=== PATIENT | male | born 1955 | race Asian ===

== ENCOUNTER 2018-12-29 19:25 | Emergency (ER) | payer MEDICAID ==
[~2018-12-29] VITALS: Ht 167.6 cm; Wt 59.0 kg
[2018-12-29 19:44] VITALS: BP_SYST 141
[2018-12-29 20:32] LABS: BASOPHILS % (AUTO) 0.6 % (0.0-2.0); EOSINOPHILS % (AUTO) 0.5 % (0.0-4.0); HEMATOCRIT 43.6 % (36-54); HEMOGLOBIN 14.3 g/dL (14.0-18.0); LYMPHOCYTES # (AUTO) 1.1 K/uL (1.0-5.5); LYMPHOCYTES % (AUTO) 13.9 % (20.5-51.5); MEAN CORPUSCULAR HEMOGLOBIN 27 pg (27-31); MEAN CORPUSCULAR HGB CONC 33 % (32-36); MEAN CORPUSCULAR VOLUME 83 fL (79.0-98.0); MONOCYTES # (AUTO) 0.6 K/uL (0.0-1.0); MONOCYTES % (AUTO) 7.6 % (1.7-9.3); NEUTROPHILS # (AUTO) 6.3 K/uL (1.8-7.7); NEUTROPHILS % (AUTO) 77.4 % (40.0-70.0); PLATELET COUNT (AUTO) 220 K/uL (130-430); RED BLOOD CELL COUNT(AUTO) 5.24 MIL/uL (4.2-6.2); RED CELL DISTRIBUTION WIDTH 14.6 % (9.0-15.0); WHITE BLOOD COUNT (AUTO) 8.1 K/uL (4.8-10.8)
[2018-12-29 20:46] LABS: BILIRUBIN,URINE NEGATIVE (NEGATIVE); BLOOD, URINE NEGATIVE (NEGATIVE); CLARITY/URINE CLEAR (CLEAR); COLOR,URINE YELLOW (YELLOW); GLUCOSE,URINE NEGATIVE (NEGATIVE); KETONES,URINE NEGATIVE (NEGATIVE); LEUKOCYTE ESTERASE ,URINE NEGATIVE (NEGATIVE); NITRITE, URINE NEGATIVE (NEGATIVE); PROTEIN URINE NEGATIVE (NEGATIVE); UROBILINOGEN,URINE 0.2 (0.2-1.0)
[2018-12-29 20:47] LABS: CALCIUM 9.1 mg/dL (8.4-11.0); CREATININE 1.05 mg/dL (0.55-1.30); POTASSIUM 3.9 mmol/L (3.5-5.1)
[2018-12-29 20:53] LABS: ALBUMIN 3.8 g/dL (3.4-4.8); TOTAL BILIRUBIN 0.7 mg/dL (0.0-1.0)
[2018-12-29 21:39] VITALS: BP_SYST 141
== END 2018-12-29 20:00 | disposition home or self-care (01) ==
LOC: SED 19:25
DX: R33.9 Retention of urine, unspecified (principal)
CPT/HCPCS: 36415; 80053; 81003; 85025; 99284

== ENCOUNTER 2019-05-05 12:57 | Emergency (ER) | payer MEDICAID ==
[~2019-05-05] VITALS: Ht 175.3 cm; Wt 61.2 kg
[2019-05-05 13:10] VITALS: BP_SYST 126
--- NOTE | 2019-05-05 13:10 | NUR ---
Patient to ER bed 04 to gown for evaluation. Side rails up.
--- NOTE | 2019-05-05 13:11 | NUR ---
Emmy mitchell in [facility] [place] - 05/05/19 at 1331 by SDEDTD [facility] rails up.
--- NOTE | 2019-05-05 13:11 | NUR ---
ER at bedside examining patient.
--- NOTE | 2019-05-05 13:12 | NUR ---
Patient presents to ER C/O urinary retention. Patient A&Ox4, ambulatory to ER, arrived with son, skin pink and warm, pain 10/13, denies N/V/D. Patient son at BS for translation, per son PT has several hours not able to urinate. Patient was seen at Dr. Reji Leung yesterday for BPH, patient has follow-up pre-op appointment.
--- NOTE | 2019-05-05 13:15 | NUR ---
# 16 FR [place] catheter with use of sterile technique. Immediate return of 30 cc YELLOW urine noted. Bedside drainage bag placed below level of bladder. Urine sample collected and sent to lab. Pt tolerated procedure . Patient unable to toilet self.
--- NOTE | 2019-05-05 14:10 | NUR ---
Patient given written and verbal discharge instructions and verbalizes understanding. ER MD discussed with patient the results and treatment provided. Patient in stable condition. ID arm band removed. No Rx given. Patient educated on pain management and to follow up with PMD. Pain Scale 0/10 . Opportunity for questions provided and answered.
[2019-05-05 14:18] VITALS: BP_SYST 129
== END 2019-05-05 14:18 | disposition home or self-care (01) ==
LOC: SED 12:57
DX: R33.9 Retention of urine, unspecified (principal)
CPT/HCPCS: 99284